=== PATIENT | female | born 1935 ===

== ENCOUNTER → 2018-07-13 | Outpatient (CLI) | payer MEDICARE, OTHER ==
[~2018-07-13] MED LIST: ALLO100 PO; ASPI81EC PO; ATOR10 PO; Acetaminophen650 M1 PO; BUME2 PO; CLON.2 PO; FERREX 28 TABL1 EACH PO; FURO40 PO; GABA100 PO; GLIM2 PO; GLIP5ER PO; METO100ER PO; OLME20 PO; POTA10T PO; SITA50T2 PO; TUMERIC; Vitamin D400 UNI1 PO
[2018-07-14 13:08] LABS: Adenovirus F 40/41 Not Detected (NOT DETECT); Astrovirus Not Detected (NOT DETECT); Campylobacter Sp Not Detected (NOT DETECT); Cryptosporidium Not Detected (NOT DETECT); Cyclospora Cayetanensis Not Detected (NOT DETECT); E. Coli O157 Not Detected (NOT DETECT); Entamoeba Histolytica Not Detected (NOT DETECT); Enteroaggregative E. coli-EAEC Not Detected (NOT DETECT); Enteropathogenic E. coli-EPEC Not Detected (NOT DETECT); Enterotoxigenic E. coli-ETEC Not Detected (NOT DETECT); Giardia Lamblia Not Detected (NOT DETECT); Norovirus GI/GII Not Detected (NOT DETECT); Plesiomonas Shigelloides Not Detected (NOT DETECT); Rotavirus A Not Detected (NOT DETECT); Salmonella Sp Not Detected (NOT DETECT); Sapovirus Not Detected (NOT DETECT); Shiga Toxin-prod E. coli-STEC Not Detected (NOT DETECT); Shigella/Enteroin E. coli-EIEC Not Detected (NOT DETECT); Vibrio Cholerae Not Detected (NOT DETECT); Vibrio Sp Not Detected (NOT DETECT); Yersinia Enterocolitica Not Detected (NOT DETECT)
[2018-07-15 14:09] LABS: FATS, NEUTRAL Normal (.); FATS, TOTAL Normal (.)
== END ==
LOC: LAB SHORT 18:30 → LAB 18:30
PROVIDERS: Internal Medicine Gastroenterology
DX: R19.7 Diarrhea, unspecified (principal)
CPT/HCPCS: 82705; 87507

== ENCOUNTER → 2019-12-14 | Outpatient (CLI) | payer MEDICARE, OTHER | END | disposition home or self-care (01) | LOC: LAB 18:03 → LAB SHORT 18:03 | DX: M35.3 Polymyalgia rheumatica (principal) | CPT/HCPCS: 85651 ==

== ENCOUNTER 2021-05-09 10:45 | Emergency (ER) | payer MEDICARE, OTHER ==
[~2021-05-09] VITALS: Ht 157.5 cm; Wt 74.4 kg
[~2021-05-09 10:45] MED LIST changes: -ALLO100 PO; -ASPI81EC PO; -BUME2 PO; -METO100ER PO; -OLME20 PO; -POTA10T PO; -SITA50T2 PO
[2021-05-09] MEDS ORDERED: FURO80 PO (12:13)
[2021-05-09] MEDS ORDERED: OLME20 PO (13:27)
[2021-05-09] MEDS ORDERED: SITA25T2 PO (13:28)
[2021-05-09] MEDS ORDERED: METO100ER PO (13:29)
[2021-05-09] MEDS ORDERED: POTA10T PO (13:29)
[2021-05-09] MEDS ORDERED: DONEPEZIL HCL10 M1 PO (13:30)
[2021-05-09] MEDS ORDERED: BUME2 PO (13:30)
[2021-05-09] MEDS ORDERED: ALLO100 PO (13:31)
[2021-05-09] MEDS ORDERED: Aspir 8181 MG PO (14:29)
[2021-05-09] MEDS ORDERED: TRAM50 PO (14:29)
[2021-05-09] MEDS ORDERED: Norco 7.5-3251 EACH PO (14:30)
[2021-05-09 15:03] LABS: BASOPHILS ABSOLUTE AUTO 0.06 K/mm3 (0.00-0.23); BASOPHILS PERCENT AUTO 1 % (0-2); EOSINOPHILS ABSOLUTE AUTO 0.18 K/mm3 (0.00-0.68); EOSINOPHILS PERCENT AUTO 2 % (0-6); Hematocrit 34.6 % (33.0-51.0); Hemoglobin 10.7 g/dL (11.5-16.0); IMMATURE GRAN ABSOLUTE AUTO 0.05 K/mm3 (0.00-0.10); IMMATURE GRAN PERCENT AUTO 1 % (0-1); LYMPHOCYTES ABSOLUTE AUTO 1.43 K/mm3 (0.84-5.20); LYMPHOCYTES PERCENT AUTO 17 % (21-46); MONOCYTES ABSOLUTE AUTO 0.64 K/mm3 (0.16-1.47); MONOCYTES PERCENT AUTO 8 % (4-13); Mean Corpuscular HGB 32.2 pg (26.0-34.0); Mean Corpuscular HGB Conc 30.9 g/dL (31.5-36.5); Mean Corpuscular Volume 104 fL (80-100); Mean Platelet Volume 11.4 fL (9.1-12.4); NEUTROPHILS ABSOLUTE AUTO 6.07 K/mm3 (1.96-9.15); NEUTROPHILS PERCENT AUTO 72 % (41-73); Platelet Count 198 K/mm3 (150-400); RDW Coefficient Variation 19.9 % (11.7-14.2); Red Blood Cell Count 3.32 M/mm3 (3.80-5.20); White Blood Cell Count 8.43 K/mm3 (4.00-11.30)
[2021-05-09 15:24] LABS: Albumin, Blood 4.1 g/dL (3.4-5.0); Albumin/Globulin Ratio 1.1 (0.8-1.8); Bilirubin, Total 0.5 mg/dL (0.1-1.0); Bun/Creatinine Ratio 21.2 (12.0-20.0); Calcium, Blood 10.1 mg/dL (8.5-10.1); Creatinine, Blood 2.83 mg/dL (0.40-1.00); Globulin, Blood 3.7 g/dL (2.2-4.0); Potassium, Blood 4.6 mmol/L (3.5-5.5); Total Protein, Blood 7.8 g/dL (6.4-8.2)
[2021-05-09 15:45] LABS: Prothrombin Time Results 10.8 Sec (9.7-11.5)
[2021-05-09 15:59] LABS: SARS-Cov-2 (COVID-19) PCR, MMC NEGATIVE (NEGATIVE)
--- NOTE | 2021-05-09 16:08 | NUR ---
History, Chart, Medications and Allergies reviewed before start of procedure.Patient confirms NPO status and agrees with scheduled surgery. Pre-Op teaching done. Pt verbalizes understanding.
--- NOTE | 2021-05-09 18:34 | NUR ---
DISCHARGED TO HOME WITH YESSICA . AND PT VERBALIZED D/C INSTRUCTIONS. SMALL AMOUNT RED DRNG ON NECK DRSG NO RECENT INCREASE IN AMOUNT . DENIES PAIN OR NAUSEA 1 PERSON ASSIST TO CAR TOLERATED WELL
--- NOTE | 2021-05-12 16:56 | NUR ---
05/12/21 1656 Sammi Aviles VERIFICATIONS: EDIT CHART
== END 2021-05-09 15:50 | disposition other institution (70) ==
LOC: ER 10:45
PROVIDERS: Emergency Medicine
DX: N19 Unspecified kidney failure (principal); F03.90 Unspecified dementia, unspecified severity, without behavioral disturbance, psychotic disturbance, mood disturbance, and anxiety; E11.9 Type 2 diabetes mellitus without complications; R00.1 Bradycardia, unspecified; I10 Essential (primary) hypertension; Z90.89 Acquired absence of other organs; Z90.710 Acquired absence of both cervix and uterus; Z20.822 Contact with and (suspected) exposure to COVID-19; Z79.84 Long term (current) use of oral hypoglycemic drugs; Z79.82 Long term (current) use of aspirin; Z79.899 Other long term (current) drug therapy
CPT/HCPCS: 36415; 77001; 80053; 82947; 85025; 85610; 93005; 93010; 99284-25; C1750; J0690; J1100; J1644; J2405; J2704; J3010; J7030; J7120; U0004

== ENCOUNTER → 2022-01-29 | Outpatient (CLI) | payer MEDICARE, OTHER ==
[~2022-01-29] MED LIST changes: +ALLO100 PO; +Aspir 8181 MG PO; +BUME2 PO; +DONEPEZIL HCL10 M1 PO; +FURO80 PO; +METO100ER PO; +Norco 7.5-3251 EACH PO; +OLME20 PO; +POTA10T PO; +SITA25T2 PO; +TRAM50 PO
== END | disposition home or self-care (01) ==
LOC: LAB SHORT 13:30
DX: L57.0 Actinic keratosis (principal); L85.8 Other specified epidermal thickening
CPT/HCPCS: 88305

== ENCOUNTER → 2022-04-18 | Outpatient (CLI) | payer MEDICARE, OTHER | END | disposition home or self-care (01) | LOC: LAB SHORT 18:20 → LAB 18:20 | DX: D58.2 Other hemoglobinopathies (principal) | CPT/HCPCS: 85018 ==

== ENCOUNTER 2022-10-02 20:12 | Emergency (ER) | payer MEDICARE, OTHER ==
[~2022-10-02] VITALS: Ht 167.6 cm; Wt 68.0 kg
[2022-10-02 21:31] LABS: BASOPHILS ABSOLUTE AUTO 0.06 K/mm3 (0.00-0.23); BASOPHILS PERCENT AUTO 1 % (0-2); EOSINOPHILS ABSOLUTE AUTO 0.05 K/mm3 (0.00-0.68); EOSINOPHILS PERCENT AUTO 1 % (0-6); Hematocrit 39.9 % (33.0-51.0); Hemoglobin 13.1 g/dL (11.5-16.0); IMMATURE GRAN ABSOLUTE AUTO 0.09 K/mm3 (0.00-0.10); IMMATURE GRAN PERCENT AUTO 1 % (0-1); LYMPHOCYTES ABSOLUTE AUTO 1.04 K/mm3 (0.84-5.20); LYMPHOCYTES PERCENT AUTO 12 % (21-46); MONOCYTES ABSOLUTE AUTO 0.52 K/mm3 (0.16-1.47); MONOCYTES PERCENT AUTO 6 % (4-13); Mean Corpuscular HGB Conc 32.8 g/dL (31.5-36.5); Mean Corpuscular Volume 97 fL (80-100); Mean Platelet Volume 12.6 fL (9.1-12.4); NEUTROPHILS ABSOLUTE AUTO 7.03 K/mm3 (1.96-9.15); NEUTROPHILS PERCENT AUTO 80 % (41-73); Platelet Count 80 K/mm3 (150-400); RDW Coefficient Variation 14.3 % (11.7-14.2); RDW Standard Deviation 51.8 fL (35.1-46.3); White Blood Cell Count 8.79 K/mm3 (4.00-11.30)
[2022-10-03 00:39] LABS: Albumin, Blood 3.9 g/dL (3.4-5.0); Albumin/Globulin Ratio 1.1 (0.8-1.8); Bilirubin, Total 0.3 mg/dL (0.1-1.0); Bun/Creatinine Ratio 11.5 (12.0-20.0); Calcium, Blood 9.8 mg/dL (8.5-10.1); Creatinine, Blood 2.6 mg/dL (0.40-1.00); Globulin, Blood 3.4 g/dL (2.2-4.0); Potassium, Blood 4.2 mmol/L (3.5-5.5); Total Protein, Blood 7.3 g/dL (6.4-8.2)
== END 2022-10-03 01:49 | disposition home or self-care (01) ==
LOC: ER 20:12
PROVIDERS: Emergency Medicine
DX: I12.9 Hypertensive chronic kidney disease with stage 1 through stage 4 chronic kidney disease, or unspecified chronic kidney disease (principal); E11.22 Type 2 diabetes mellitus with diabetic chronic kidney disease; N18.9 Chronic kidney disease, unspecified; R55 Syncope and collapse; Z79.899 Other long term (current) drug therapy; Z79.82 Long term (current) use of aspirin
CPT/HCPCS: 36415; 70450; 71045; 72125; 80053; 85025; 93005; 93010

== ENCOUNTER 2022-11-05 08:58 | Emergency (ER) | payer MEDICARE, OTHER ==
[~2022-11-05] VITALS: Ht 157.5 cm; Wt 72.6 kg
[2022-11-05] MEDS ORDERED: CINA30 PO (12:10)
[2022-11-05] MEDS ORDERED: Nexium40 MG PO (12:13)
[2022-11-05] MEDS ORDERED: ACET500 PO (12:16)
[2022-11-05] MEDS ORDERED: Vitamin D1000 UNI1 PO (12:16)
[2022-11-05] MEDS ORDERED: Norco 5-325 Ta1 EACH PO (12:17)
== END 2022-11-05 14:01 | disposition home or self-care (01) ==
LOC: ER 08:58
DX: S32.511A Fracture of superior rim of right pubis, initial encounter for closed fracture (principal); S32.591A Other specified fracture of right pubis, initial encounter for closed fracture; W18.30XA Fall on same level, unspecified, initial encounter; G30.9 Alzheimer's disease, unspecified; F02.80 Dementia in other diseases classified elsewhere, unspecified severity, without behavioral disturbance, psychotic disturbance, mood disturbance, and anxiety; I10 Essential (primary) hypertension; E11.9 Type 2 diabetes mellitus without complications; Z79.899 Other long term (current) drug therapy; Z79.82 Long term (current) use of aspirin
CPT/HCPCS: 72192; 73502; A9270

== ENCOUNTER → 2022-12-02 | Outpatient (CLI) | payer MEDICARE, OTHER ==
[~2022-12-02] MED LIST changes: +ACET500 PO; +CINA30 PO; +Nexium40 MG PO; +Norco 5-325 Ta1 EACH PO; +Vitamin D1000 UNI1 PO
[2022-12-02 12:06] LABS: Bilirubin, Urine Neg (Neg); Blood, Urine 1+ (Neg); Glucose Qualitative, Urine Neg (Neg); Ketones, Urine 1+ (Neg); Leukocyte Esterase, Urine 2+ (Neg); Nitrite, Urine Neg (Neg); Protein, Urine 2+ (Neg); Specific Gravity, Urine 1.015 (1.003-1.022); Urobilinogen, Urine NORM (Normal)
[2022-12-02 12:18] LABS: Appearance, Urine Hazy (Clear); Bacteria Few /hpf; Color, Urine Yellow (P-Yellow); Squamous Epithelial Cells Few /hpf (Few)
== END | disposition home or self-care (01) ==
LOC: LAB 09:00 → LAB SHORT 09:00
PROVIDERS: Hospitalist
DX: N39.0 Urinary tract infection, site not specified (principal)
CPT/HCPCS: 81001; 87077; 87086; 87186

== ENCOUNTER → 2023-07-08 | Outpatient (CLI) | payer MEDICARE, OTHER ==
[~2023-07-08] MED LIST changes: +CEFP200 PO
[2023-07-08 14:07] LABS: Source, Urine Clean Catch
[2023-07-08 15:23] LABS: Appearance, Urine Hazy (Clear); Bilirubin, Urine Neg (Neg); Blood, Urine 1+ (Neg); Glucose Qualitative, Urine Neg (Neg); Ketones, Urine Neg (Neg); Leukocyte Esterase, Urine 2+ (Neg); Nitrite, Urine Neg (Neg); Protein, Urine 2+ (Neg); Specific Gravity, Urine 1.015 (1.003-1.022); Urobilinogen, Urine NORM (Normal)
[2023-07-08 15:37] LABS: Color, Urine Pale Yellow (P-Yellow)
[2023-07-08 15:40] LABS: Calcium Oxalate Crystals Few /hpf; White Blood Cells, Urine 25-50 /hpf (0-5)
[2023-07-08 15:41] LABS: Bacteria Many /hpf; Red Blood Cells, Urine 0-2 /hpf (0-2); Squamous Epithelial Cells Mod /hpf (Few)
== END ==
LOC: LAB 10:30 → LAB SHORT 10:30
PROVIDERS: Hospitalist
DX: N39.0 Urinary tract infection, site not specified (principal)
CPT/HCPCS: 81001; 87086

== ENCOUNTER → 2023-08-25 | Outpatient (CLI) | payer MEDICARE, OTHER | LOC: LAB SHORT 11:00 → LAB 11:00 | DX: R35.0 Frequency of micturition (principal) | CPT/HCPCS: 87077; 87086; 87186 ==

== ENCOUNTER 2023-09-18 15:43 | Inpatient (IN) | payer MEDICARE, OTHER ==
[~2023-09-18] VITALS: Ht 160 cm; Wt 59.0 kg
[~2023-09-18 15:43] MED LIST changes: -SITA25T2 PO; +SITA50T2 PO
[2023-09-18 19:36] LABS: BASOPHILS ABSOLUTE AUTO 0.05 K/mm3 (0.00-0.23); BASOPHILS PERCENT AUTO 1 % (0-2); EOSINOPHILS ABSOLUTE AUTO 0.09 K/mm3 (0.00-0.68); EOSINOPHILS PERCENT AUTO 1 % (0-6); Hematocrit 33.5 % (33.0-51.0); Hemoglobin 10.7 g/dL (11.5-16.0); IMMATURE GRAN ABSOLUTE AUTO 0.03 K/mm3 (0.00-0.10); IMMATURE GRAN PERCENT AUTO 0 % (0-1); LYMPHOCYTES ABSOLUTE AUTO 3.66 K/mm3 (0.84-5.20); LYMPHOCYTES PERCENT AUTO 43 % (21-46); MONOCYTES ABSOLUTE AUTO 0.77 K/mm3 (0.16-1.47); MONOCYTES PERCENT AUTO 9 % (4-13); Mean Corpuscular HGB 31.4 pg (26.0-34.0); Mean Corpuscular HGB Conc 31.9 g/dL (31.5-36.5); Mean Corpuscular Volume 98 fL (80-100); Mean Platelet Volume 12.1 fL (9.1-12.4); NEUTROPHILS PERCENT AUTO 47 % (41-73); Platelet Count 226 K/mm3 (150-400); RDW Coefficient Variation 14.5 % (11.7-14.2); RDW Standard Deviation 52.2 fL (35.1-46.3); Red Blood Cell Count 3.41 M/mm3 (3.80-5.20)
[2023-09-18 19:46] LABS: Albumin, Blood 3.7 g/dL (3.4-5.0); Albumin/Globulin Ratio 1.1 (0.8-1.8); Bilirubin, Total 0.3 mg/dL (0.1-1.0); Calcium, Blood 9.6 mg/dL (8.5-10.1); Creatinine, Blood 2.88 mg/dL (0.40-1.00); Globulin, Blood 3.4 g/dL (2.2-4.0); Potassium, Blood 3.6 mmol/L (3.5-5.5); Total Protein, Blood 7.1 g/dL (6.4-8.2)
[2023-09-18 20:08] LABS: International Normalized Ratio 1.01; Prothrombin Time Results 10.6 Sec (9.7-11.5)
[2023-09-18 21:31] VITALS: BP 166/95
[2023-09-19] VITALS (22 sets, daily range): BP systolic 94–189; BP diastolic 50–159
[2023-09-19 05:32] LABS: BASOPHILS ABSOLUTE AUTO 0.04 K/mm3 (0.00-0.23); BASOPHILS PERCENT AUTO 0 % (0-2); EOSINOPHILS PERCENT AUTO 0 % (0-6); Hematocrit 28.4 % (33.0-51.0); Hemoglobin 9.5 g/dL (11.5-16.0); IMMATURE GRAN ABSOLUTE AUTO 0.15 K/mm3 (0.00-0.10); IMMATURE GRAN PERCENT AUTO 1 % (0-1); LYMPHOCYTES ABSOLUTE AUTO 0.68 K/mm3 (0.84-5.20); LYMPHOCYTES PERCENT AUTO 4 % (21-46); MONOCYTES ABSOLUTE AUTO 0.77 K/mm3 (0.16-1.47); MONOCYTES PERCENT AUTO 4 % (4-13); Mean Corpuscular HGB Conc 33.5 g/dL (31.5-36.5); Mean Corpuscular Volume 96 fL (80-100); NEUTROPHILS ABSOLUTE AUTO 15.87 K/mm3 (1.96-9.15); NEUTROPHILS PERCENT AUTO 91 % (41-73); RDW Coefficient Variation 14.4 % (11.7-14.2); RDW Standard Deviation 50.7 fL (35.1-46.3); Red Blood Cell Count 2.97 M/mm3 (3.80-5.20); White Blood Cell Count 17.51 K/mm3 (4.00-11.30)
[2023-09-19 05:33] LABS: Mean Platelet Volume 11.8 fL (9.1-12.4); Platelet Count 216 K/mm3 (150-400)
[2023-09-19 05:46] LABS: Albumin, Blood 3.5 g/dL (3.4-5.0); Bilirubin, Total 0.3 mg/dL (0.1-1.0); Bun/Creatinine Ratio 11.3 (12.0-20.0); Calcium, Blood 9.9 mg/dL (8.5-10.1); Creatinine, Blood 3.26 mg/dL (0.40-1.00); Globulin, Blood 3.5 g/dL (2.2-4.0); Magnesium, Blood 2.2 mg/dL (1.6-2.4)
--- NOTE | 2023-09-19 10:30 | NUR ---
TELEPHONE CALL TO DR AQUINO R/T PT FULL CODE STATUS WITH SERA IN CHART. NEW ORDER TO CHANGE FULL CODE TO DNR. CHANGED PT CODE STATUS TO DNR VERIFIED WITH LETHA WILSON, BAND ON.
--- NOTE | 2023-09-19 10:45 | NUR ---
TELEPHONE CALL TO YESSICA, , INFORMING HIM OF PT EKG RESULTS/TREATMENT AND CURRENT HEART MONITOR READING; ALSO, INFORMED HIM R/T CHANGING CODE STATUS TO DNR. YESSICA SAID HE UNDERSTOOD/AGREES AND HAS PHONE NUMBER TO DESK IF HAS QUESTIONS.
--- NOTE | 2023-09-19 10:48 | NUR ---
EKG DONE: AFIB RVR, CALLED TELE: PT SUSTAINING IN 140s. CALLED DR AQUINO. NEW ORDER FOR METOPROLOL IV 2.5 MG NOW; GAVE AT 1020. NOW TELE IS AFIB 118.
--- NOTE | 2023-09-19 14:42 | NUR ---
09/19/23 1442 Rashmi Bowers PRIOR TO PREPPING PATIENTS SKIN, NOTED REDNESS & IRRITATION PRESENT IN LOWER ABDOMEN AND RIGHT GROIN AREA.
--- NOTE | 2023-09-19 17:00 | NUR ---
TELEPHONE CALL TO YESSICA/ R/T PT BACK IN ROOM, VSS/RA, SLEEPING BUT WAKES EASILY, S/P LEFT HIP NAILING.
--- NOTE | 2023-09-19 18:19 | NUR ---
SHIFT SUMMARY PT A&O1, VSS/RA/TELE AFIB 82 BPM, SLEEPY/WAKES EASILY, REPOSITIONED, HOB 30 DEGREES, HENSLEY PATENT/OFF FLOOR, BM TODAY, IV LAC IVF SL. FAMILY AT BEDSIDE. WILL REPORT TO ONCOMING NOC RN.
[2023-09-19 20:49] LABS: Magnesium, Blood 2.3 mg/dL (1.6-2.4); Phosphorus, Blood 8.6 mg/dL (2.5-4.9)
[2023-09-20] VITALS (20 sets, daily range): BP systolic 96–156; BP diastolic 40–105
[2023-09-20 06:12] LABS: BASOPHILS ABSOLUTE AUTO 0.02 K/mm3 (0.00-0.23); BASOPHILS PERCENT AUTO 0 % (0-2); EOSINOPHILS ABSOLUTE AUTO 0.01 K/mm3 (0.00-0.68); EOSINOPHILS PERCENT AUTO 0 % (0-6); Hematocrit 19.8 % (33.0-51.0); Hemoglobin 6.4 g/dL (11.5-16.0); IMMATURE GRAN ABSOLUTE AUTO 0.14 K/mm3 (0.00-0.10); IMMATURE GRAN PERCENT AUTO 1 % (0-1); LYMPHOCYTES ABSOLUTE AUTO 1.57 K/mm3 (0.84-5.20); LYMPHOCYTES PERCENT AUTO 8 % (21-46); MONOCYTES ABSOLUTE AUTO 1.25 K/mm3 (0.16-1.47); MONOCYTES PERCENT AUTO 6 % (4-13); Mean Corpuscular HGB 31.7 pg (26.0-34.0); Mean Corpuscular HGB Conc 32.3 g/dL (31.5-36.5); Mean Corpuscular Volume 98 fL (80-100); Mean Platelet Volume 11.6 fL (9.1-12.4); NEUTROPHILS ABSOLUTE AUTO 17.55 K/mm3 (1.96-9.15); NEUTROPHILS PERCENT AUTO 86 % (41-73); Platelet Count 190 K/mm3 (150-400); RDW Coefficient Variation 14.9 % (11.7-14.2); RDW Standard Deviation 53.1 fL (35.1-46.3); Red Blood Cell Count 2.02 M/mm3 (3.80-5.20); White Blood Cell Count 20.54 K/mm3 (4.00-11.30)
[2023-09-20 06:39] LABS: Bun/Creatinine Ratio 14.3 (12.0-20.0); Calcium, Blood 8.8 mg/dL (8.5-10.1); Creatinine, Blood 4.75 mg/dL (0.40-1.00); Potassium, Blood 4.5 mmol/L (3.5-5.5)
--- NOTE | 2023-09-20 07:34 | NUR ---
SHIFT SUMMARY NOC. PT POD 1 FOR LEFT HIP GAMMA NAILING. PT A/O X1 TO SELF. PT DOES NOT USE CALL LIGHT APPROPRIATLY AND CALLS OUT FOR ASSISTANCE. PT HAS 3 POST OP SITES ON HER LEFT LATERAL HIP/THIGH. DRESSING IS FOAM WITH GAUZE AND IS C/D/I. PT DENIED PAIN THIS SHIFT AND HAD NO VISIBLE FACIAL GRIMACING. PT HAS A HENSLEY IN PLACE BELOW BLADDER AND DRAINING TO GRAVITY. PT RESTED WITH EYES CLOSED AND CALL LIGHT IN REACH.
--- NOTE | 2023-09-20 15:30 | NUR ---
UPDATE PATIENT BLOOD TRANSFUSED AND TRANSFERRED TO DIALYSIS AT 1500.
--- NOTE | 2023-09-20 17:38 | NUR ---
SHIFT SUMMARY PATIENT AOX-1, VERY FORGETFUL, CALLS OUT. REDIRECTABLE AND COOPEATIVE WITH CARE. FAMILY IN TO VISIT TODAY. PATIENT WAS GIVEN 1 UNIT OF BLOOD AND HAD DIALYSIS TODAY. ABLE TO EAT WITH ASSISTANCE SITTING AT 90 DEGREES. THICKENED LIQ WITH SPOON AND MEDS WHOLE WITH APPLESAUCE. PATIENT HAS HENSLEY CATH IN PLACE DRAINING TO GRAVITY AND STAT LOCK IN PLACE. UA ORDERED HENSLEY CLAMPPED FOR SAMPLE. BED ALARM FOR SAFETY. BULKY DRESSING TO LEFT HIP IS C/D/I. IV TO LEFT WRIST IS SALINE LOCKED. VSS.
[2023-09-20 18:40] LABS: Source, Urine Clean Catch
[2023-09-20 18:51] LABS: Appearance, Urine Turbid (Clear); Bilirubin, Urine Neg (Neg); Blood, Urine 4+ (Neg); Glucose Qualitative, Urine Neg (Neg); Ketones, Urine Neg (Neg); Leukocyte Esterase, Urine 3+ (Neg); Nitrite, Urine Neg (Neg); Protein, Urine 2+ (Neg); Specific Gravity, Urine 1.025 (1.003-1.022); Urobilinogen, Urine NORM (Normal)
[2023-09-20 20:20] LABS: Color, Urine Pale Yellow (P-Yellow)
[2023-09-20 20:22] LABS: Squamous Epithelial Cells Many /hpf (Few)
[2023-09-20 20:23] LABS: Amorphous Mod (0-Heavy); Bacteria Many /hpf
[2023-09-20 20:24] LABS: Renal Epithelial Rare /hpf (0-Rare); Transitional Epithelial Cells Few /hpf (0-Rare); White Blood Cells, Urine 25-50 /hpf (0-5)
[2023-09-20 20:25] LABS: Calcium Oxalate Crystals Rare /hpf; Mucus Light (0-Heavy)
--- NOTE | 2023-09-21 01:16 | NUR ---
TRANSFER FROM SURGICAL TO MEDICAL FLOOR. REPORT GIVEN TO KATIE IRAHETA ON MEDICAL FLOOR. PT LEFT THE FLOOR AT 0107 WITH BELONGINGS.
[2023-09-21 01:19] VITALS: BP 110/90
--- NOTE | 2023-09-21 04:49 | NUR ---
LATE ENTRY FOR 09/20/23 NOC SHIFT. THIS RN WAS NOTIFIED BY TELEMETRY THAT PT HAD ABERRANT SVT. THIS RN VISULIZED PT AND PT WAS RESTING COMFORTABLY WITH EYES CLOSED AND UNLABORED BREATHING. THIS RN NOTIFIED BY TELE APPROX 20 MIN LATER THAT PT HAD BIGEMINY WITH PVCS. PT HAD A TACHYCARDIC EVENT SUSTAINING 130S UP TO 140S. THIS RN CALLED HOSPITALIST ELECTRIC SPOT WELDER SEBAS. NEW ORDER RECEIVED FOR EKG. EKG DONE. PT DENIED SOB OR CHEST PAIN DURING THESE EVENTS.
[2023-09-21 04:52] VITALS: BP 104/86
--- NOTE | 2023-09-21 04:56 | NUR ---
SHIFT SUMMARY MANJU WAS TRANSFERRED TO MY CARE AT 0115. SHE WAS ALERT AND ORIENTED TO SELF ONLY. PT HAD SURGERY YESTERDAY ON HER LEFT HIP, ALL DRESSINGS ARE C/D/I. CATHETER CARE PERFORMED, PT DRAINING CLEAR YELLOW URINE. PT HAD HEMODIALYSIS ON DAY SHIFT AND IS LETHARGIC. PER REPORT PT HAD SEVERAL EVENTS ON TELE PRIOR TO TRANSFER (TACHY, BIGEMINY, PVC'S) BUT SHE HAS BEEN RUNNING SHE HAS BEEN SINUS RHYTHM SINCE ARRIVAL. PT HAS PAIN MANAGEMENT OPTIONS, BUT IS DENYING PAIN AT THIS TIME. PER REPORT PT CAN BE IMPULSIVE (BASELINE DEMENTIA)HOWEVER TONIGHT THE PT SLEPT FINE WITHOUT ANY BEHAVIORS. PT RESTING IN BED AT A LOW POSITION AT THIS TIME WITH THE CALL LIGHT IN REACH AND THE BED ALARM PLACED.
[2023-09-21 05:46] LABS: Hematocrit 22.1 % (33.0-51.0); Hemoglobin 7.6 g/dL (11.5-16.0)
[2023-09-21 06:17] LABS: Albumin, Blood 2.9 g/dL (3.4-5.0); Anion Gap 9 mmol/L (6-16); Blood Urea Nitrogen 55 mg/dL (8-24); CO2, Blood 27 mmol/L (21-32); Calcium, Blood 7.8 mg/dL (8.5-10.1); Chloride, Blood 105 mmol/L (98-108); Creatinine, Blood 3.66 mg/dL (0.40-1.00); Ferritin, Serum 1213 ng/mL (8-252); Glomerular Filtration Rate 11 (60-); Glucose, Blood 127 mg/dL (70-99); Iron Serum 100 ug/dL (50-170); Magnesium, Blood 2.2 mg/dL (1.6-2.4); Percent Saturation 62.1 % (15.0-50.0); Phosphorus, Blood 6.1 mg/dL (2.5-4.9); Potassium, Blood 4.1 mmol/L (3.5-5.5); Sodium, Blood 141 mmol/L (136-145); Total Iron Binding Capacity 161 ug/dL (250-450)
[2023-09-21 07:46] VITALS: BP 124/46
--- NOTE | 2023-09-21 07:54 | NUR ---
BRITNEY GAVE VERBAL TO CHANGE CHEM BG AND INSULIN TO ACHS.
[2023-09-21 15:55] VITALS: BP 101/40
--- NOTE | 2023-09-21 18:00 | NUR ---
SUMMARY- PT AAOX1 THIS SHIFT-TO SELF ONLY. PT HAS BEEN REORIENTED EXTENSIVELY THIS SHIFT. PT'S PAIN WELL CONTROLLED AFTER THE ADDITION OF ULTRAM AND NORCO. PT HAS NOT URINATED SINCE HENSLEY CATHETER REMOVAL 9 HOURS AGO. PT WAS BLADDER SCANNED AT 5.5 HOURS POST HENSLEY REMOVAL AND 67ML OF URINE IN BLADDER-PT IS A DIALYSIS PT. THIS RN DID GET PT OOB TO THE BSC X1 THIS SHIFT. PT WAS A X2 ASSIST WITH GAIT BELT AND WALKER.
[2023-09-21 20:48] VITALS: BP 119/54
[2023-09-22] VITALS (15 sets, daily range): BP systolic 75–132; BP diastolic 34–84
[2023-09-22 06:32] LABS: BASOPHILS ABSOLUTE AUTO 0.01 K/mm3 (0.00-0.23); BASOPHILS PERCENT AUTO 0 % (0-2); EOSINOPHILS ABSOLUTE AUTO 0.01 K/mm3 (0.00-0.68); EOSINOPHILS PERCENT AUTO 0 % (0-6); Hematocrit 22.4 % (33.0-51.0); Hemoglobin 7.5 g/dL (11.5-16.0); IMMATURE GRAN ABSOLUTE AUTO 0.16 K/mm3 (0.00-0.10); IMMATURE GRAN PERCENT AUTO 1 % (0-1); LYMPHOCYTES ABSOLUTE AUTO 2.12 K/mm3 (0.84-5.20); LYMPHOCYTES PERCENT AUTO 16 % (21-46); MONOCYTES ABSOLUTE AUTO 0.99 K/mm3 (0.16-1.47); MONOCYTES PERCENT AUTO 7 % (4-13); Mean Corpuscular HGB 32.2 pg (26.0-34.0); Mean Corpuscular HGB Conc 33.5 g/dL (31.5-36.5); Mean Corpuscular Volume 96 fL (80-100); Mean Platelet Volume 11.6 fL (9.1-12.4); NEUTROPHILS ABSOLUTE AUTO 10.28 K/mm3 (1.96-9.15); NEUTROPHILS PERCENT AUTO 76 % (41-73); NRBC ABSOLUTE 0.07 K/mm3 (0.00-0.02); NRBC Auto 0.5 /100 WBC (0.0-0.2); Platelet Count 161 K/mm3 (150-400); RDW Standard Deviation 52.6 fL (35.1-46.3); Red Blood Cell Count 2.33 M/mm3 (3.80-5.20); White Blood Cell Count 13.57 K/mm3 (4.00-11.30)
[2023-09-22 07:13] LABS: Albumin, Blood 2.7 g/dL (3.4-5.0); Anion Gap 9 mmol/L (6-16); Blood Urea Nitrogen 65 mg/dL (8-24); Bun/Creatinine Ratio 14.5 (12.0-20.0); CO2, Blood 25 mmol/L (21-32); Calcium, Blood 7.4 mg/dL (8.5-10.1); Chloride, Blood 106 mmol/L (98-108); Creatinine, Blood 4.48 mg/dL (0.40-1.00); Glomerular Filtration Rate 9 (60-); Glucose, Blood 114 mg/dL (70-99); Magnesium, Blood 2.5 mg/dL (1.6-2.4); Phosphorus, Blood 5.5 mg/dL (2.5-4.9); Potassium, Blood 3.8 mmol/L (3.5-5.5); Sodium, Blood 140 mmol/L (136-145)
--- NOTE | 2023-09-22 08:37 | NUR ---
SHIFT SUMMARY PATIENT A/OXSELF, HX DEMENTIA. FULL LIQUID DIET, ASPIRATION PRECAUTIONS. ATTEMPTED TO GIVE PATIENT HER PILLS WHOLE IN PUDDING BUT PATIENT STARTED TO CHEW THEM. PT IS POST OP DAY 3 PRAVEEN PLACEMENT ON 09/19. 4 INCISION/DRESSED SITES WITH SCANT DRAINAGE TO LOWER 3. REPOSITION Q2 WHILE ASLEEP, PATIENT HAS A REDDENED AREA TO LEFT BUTTOCK THAT IS NOT OPEN. PT IS A DIALYSIS PATIENT, DR. ROTH FOLLOWING, LEFT CHEST PERMACATH. PLAN FOR DIALYSIS TODAY. PATIENT DOES HAVE SOME RETENTION. BLADDER SCAN THIS AM WAS 357, PT GOT UP TO BSC WITH 2 PERSON WALKER AND GAIT BELT AND ONLY URINATED ABOUT 40 ML'S. PRN TRAMADOL GIVEN X1 VIA FLACC SCALE. PT UNABLE TO CONSISTENLY MAKE NEEDS KNOWN. SLEPT MAJORITY OF SHIFT. CALL LIGHT IN REACH. BED LOCKED IN LOW POSITION. BED ALARM ON. SCD'S ON BILATERALLY.
--- NOTE | 2023-09-22 10:15 | NUR ---
DIALYSIS PT RERURNED FROM DIALYSIS VIA BED. PT RESTING WITH EYES CLOSED. RESP. EVEN AND UNLABORED. CAUGHT HER UP ON MORNING MEDCIATIONS. PT WILL OPEN HER EYES TO VOICE AND TOUCH. UNABLE TO KEEP HER AWAKE LONG ENOUGH TO DO A TEST SPOON OF APPLE SAUCE FOR MEDICATIONS. CONTINUE POC.
--- NOTE | 2023-09-22 11:03 | NUR ---
YELLING PT AWAKE AND YELLING FOR "Wong". Wong IS HER . VISISTED FOR A BIT AND SHE WENT BACK TO SLEEP. CONTINUE POC.
--- NOTE | 2023-09-22 13:16 | NUR ---
FAMILY PT FAMILY HAS ARRIVED. DR TAN CALLED. [facility]AT[facility] NOTIFIED. CONTINUE POC.
--- NOTE | 2023-09-22 15:41 | NUR ---
NOTE PT WAS INCONTINENT OF URINE AND BOWL. ASHWINI CARE SKIN CD&I. ASHWINI CARE DONE. ATTENDS ON. CHANGED DRESSINGS TO STAPLE LINES LEFT THIGH. EDGES OF STAPLE LINES CT&I. EDGES WELL APPROXIMATED. NO S/S OF INFECTION NOTED. FAMILY AT BEDSIDE. DR TAN AND FAMILY DISCUSSING HOSPICE CARE. CONTINUEPOC.
--- NOTE | 2023-09-22 18:57 | NUR ---
Called to see pt in dialysis. Pt having catheter failure and had short run of dialysis. Met with family to review her prognosis and plan of care. They stated she has been wanting to deny dialysis for some time. Pt family met with phsycian pt made comfort care. updated home care attendant. Reviewed needed pain medications with nursing.
[2023-09-23 02:47] VITALS: BP 139/56
[2023-09-23 05:58] LABS: BASOPHILS ABSOLUTE AUTO 0.02 K/mm3 (0.00-0.23); BASOPHILS PERCENT AUTO 0 % (0-2); EOSINOPHILS ABSOLUTE AUTO 0.03 K/mm3 (0.00-0.68); EOSINOPHILS PERCENT AUTO 0 % (0-6); Hematocrit 20.9 % (33.0-51.0); Hemoglobin 6.8 g/dL (11.5-16.0); IMMATURE GRAN ABSOLUTE AUTO 0.14 K/mm3 (0.00-0.10); IMMATURE GRAN PERCENT AUTO 1 % (0-1); LYMPHOCYTES ABSOLUTE AUTO 1.72 K/mm3 (0.84-5.20); LYMPHOCYTES PERCENT AUTO 15 % (21-46); MONOCYTES ABSOLUTE AUTO 1.01 K/mm3 (0.16-1.47); MONOCYTES PERCENT AUTO 9 % (4-13); Mean Corpuscular HGB 32.1 pg (26.0-34.0); Mean Corpuscular HGB Conc 32.5 g/dL (31.5-36.5); Mean Corpuscular Volume 99 fL (80-100); Mean Platelet Volume 11.1 fL (9.1-12.4); NEUTROPHILS ABSOLUTE AUTO 8.37 K/mm3 (1.96-9.15); NEUTROPHILS PERCENT AUTO 74 % (41-73); NRBC ABSOLUTE 0.04 K/mm3 (0.00-0.02); NRBC Auto 0.4 /100 WBC (0.0-0.2); Platelet Count 173 K/mm3 (150-400); RDW Coefficient Variation 14.9 % (11.7-14.2); Red Blood Cell Count 2.12 M/mm3 (3.80-5.20); White Blood Cell Count 11.29 K/mm3 (4.00-11.30)
[2023-09-23 06:18] LABS: Albumin, Blood 2.6 g/dL (3.4-5.0); Anion Gap 6 mmol/L (6-16); Blood Urea Nitrogen 62 mg/dL (8-24); Bun/Creatinine Ratio 14.8 (12.0-20.0); CO2, Blood 29 mmol/L (21-32); Calcium, Blood 7.6 mg/dL (8.5-10.1); Chloride, Blood 111 mmol/L (98-108); Creatinine, Blood 4.19 mg/dL (0.40-1.00); Glomerular Filtration Rate 10 (60-); Glucose, Blood 118 mg/dL (70-99); Magnesium, Blood 2.4 mg/dL (1.6-2.4); Phosphorus, Blood 4.9 mg/dL (2.5-4.9); Potassium, Blood 3.9 mmol/L (3.5-5.5); Sodium, Blood 146 mmol/L (136-145)
[2023-09-23 08:02] VITALS: BP 148/54
--- NOTE | 2023-09-23 08:11 | NUR ---
I RECEIVED A CALL FROM CL[facility] AT 0614 THIS MORNING THAT PATIENT HAD A RUN OF V-TACH AT 2127. I WAS NEVER CALLED AT THE TIME OF THE EVENT. SPOKE TO MY CHARGE NURSES WHO WERE NOT MADE AWARE EITHER. DON PCU MONITOR IS WHO I SPOKE TO AND SHE SAID SHE CAME ON TO SHIFT AT 0400 AND PRINTED THESE REORTS AND CALLED ME AT 0614 TO SEE IF I WAS MADE AWARE. I WAS NOT MADE AWARE BUT MY NAME IS DOCUMENTED UNDER HER REPORTS THAT I WAS NOTIFIED UNDER THE TIME OF THE EVENT.
--- NOTE | 2023-09-23 16:25 | NUR ---
Pt looks comfortable. review of medications [facility] nursing for comfort. pt to DC on hospice tomorrow. Which aligns with her expressions to family and will be of great support for her children they are weary from her expressions of suffering.
[2023-09-23 17:06] VITALS: BP 164/75
--- NOTE | 2023-09-23 17:06 | NUR ---
PT IS AOX1 AND RESTING PEACEFULLY. PT WAS ONLY ABLE TO TAKE ORAL PILLS CRUSHED IN APPLESAUCE.PT HAS BEEN VERY TIRED AND RESTING NOT HARDLY EATING AT ALL. PT IS REPOSITIONED Q2HRS. TREATED FOR KNEE PAIN PER EMAR. NO DISTRESSS NOTED WILL CONTINUE TO MONITOR.
[2023-09-23 20:39] VITALS: BP 125/86
[2023-09-24 02:28] VITALS: BP 141/126
[2023-09-24 05:15] LABS: Hematocrit 22.5 % (33.0-51.0); Hemoglobin 7.3 g/dL (11.5-16.0)
[2023-09-24 06:07] LABS: Albumin, Blood 2.7 g/dL (3.4-5.0); Anion Gap 8 mmol/L (6-16); Blood Urea Nitrogen 68 mg/dL (8-24); Bun/Creatinine Ratio 15.3 (12.0-20.0); CO2, Blood 27 mmol/L (21-32); Chloride, Blood 113 mmol/L (98-108); Creatinine, Blood 4.43 mg/dL (0.40-1.00); Glomerular Filtration Rate 9 (60-); Glucose, Blood 106 mg/dL (70-99); Magnesium, Blood 2.5 mg/dL (1.6-2.4); Potassium, Blood 3.8 mmol/L (3.5-5.5); Sodium, Blood 148 mmol/L (136-145)
[2023-09-24 07:39] VITALS: BP 167/76
[2023-09-24] MEDS ORDERED: METO50 PO (09:11)
[2023-09-24] MEDS ORDERED: Norco 5-325 Ta1 EACH PO (09:11)
[2023-09-24] MEDS ORDERED: TRAM50 PO (09:57)
--- NOTE | 2023-09-24 14:04 | NUR ---
PT RESTING QUIETLY AT START OF SHIFT. WILL WAKE TO VERBAL AND NOXIOUS STIMULI. DEMENTIA PT, ADMITTED AFTER GLF AT HOME RESULTING IN HIP FX. PT ALSO ON DIALYSIS WITH PORT NOT FUNCTIONING, PER REPORT. PT TO D/C ON HOSPICE. LACE AND TEXTILES RESTORER CALLED TO CK STATUS ON PT CARE. LACE AND TEXTILES RESTORER THEN CALLED DR AQUINO. D/C ORDERS PLACED. COMPOSITE BOAT BUILDER ARRANGED [facility]. PT PICKED UP AT 11:40 TO GO TO [place] [facility]. BELONGINGS WENT WITH PT.
== END 2023-09-24 11:46 | disposition hospice, home (50) | DRG 480 ==
LOC: ER 15:43 → SURS 19:59 → MEDS 19:59 → SURS 21:25 → MEDS 09-21 01:11 → ENPENDDIS 09-24 07:51 → MEDS 09-24 11:46
PROVIDERS: Family Medicine; Internal Medicine; Internal Medicine Nephrology; Orthopaedic Surgery; ADMIT Internal Medicine
PROC: 0QS706Z Reposition Left Upper Femur with Intramedullary Internal Fixation Device, Open Approach (ICD-10-PCS; principal; 2023-09-19 13:00)
PROC: 30233N1 Transfusion of Nonautologous Red Blood Cells into Peripheral Vein, Percutaneous Approach (ICD-10-PCS; 2023-09-20)
DX: S72.142A Displaced intertrochanteric fracture of left femur, initial encounter for closed fracture (principal); N18.6 End stage renal disease; D62 Acute posthemorrhagic anemia; E87.0 Hyperosmolality and hypernatremia; I12.0 Hypertensive chronic kidney disease with stage 5 chronic kidney disease or end stage renal disease; T82.49XA Other complication of vascular dialysis catheter, initial encounter; S72.22XA Displaced subtrochanteric fracture of left femur, initial encounter for closed fracture; W18.39XA Other fall on same level, initial encounter; Z51.5 Encounter for palliative care; Z66 Do not resuscitate; D63.1 Anemia in chronic kidney disease; I48.0 Paroxysmal atrial fibrillation; I35.0 Nonrheumatic aortic (valve) stenosis; E11.22 Type 2 diabetes mellitus with diabetic chronic kidney disease; G30.9 Alzheimer's disease, unspecified; F02.80 Dementia in other diseases classified elsewhere, unspecified severity, without behavioral disturbance, psychotic disturbance, mood disturbance, and anxiety; M35.3 Polymyalgia rheumatica; S00.01XA Abrasion of scalp, initial encounter; R54 Age-related physical debility; E78.5 Hyperlipidemia, unspecified; K57.90 Diverticulosis of intestine, part unspecified, without perforation or abscess without bleeding; R82.90 Unspecified abnormal findings in urine; D72.829 Elevated white blood cell count, unspecified; E86.9 Volume depletion, unspecified; Z99.2 Dependence on renal dialysis; Z79.82 Long term (current) use of aspirin; Z79.891 Long term (current) use of opiate analgesic; Z79.2 Long term (current) use of antibiotics; Z90.49 Acquired absence of other specified parts of digestive tract
CPT/HCPCS: 36415; 70450; 72125; 73552; 80048; 80053; 80069; 81001; 82728; 82947; 83540; 83550; 83735; 83880; 84100; 85014; 85018; 85025; 85610; 86850; 86900; 86901; 86923; 87086; 93005; 93010; 93306; 96374; 96376; 97110; 97162; 99285-25; A9270; C1713; C1769; J0360; J0690; J0696; J1100; J1170; J1630; J2371; J2405; J2704; J3010; J7030; P9016